=== PATIENT | male | born 1970 | race Caucasian/White ===

== ENCOUNTER 2024-10-31 18:15 | Emergency (ER) | payer OTHER ==
[~2024-10-31] VITALS: Ht 162.6 cm; Wt 75.0 kg
[2024-10-31 18:24] VITALS: O2SAT 100
[2024-10-31] MEDS ORDERED: ACETAMINOPHEN 500MG TABLET PO ONE (19:00)
[2024-10-31 19:31] LABS: BASOPHILS % 0.9 % (0.0-2.0); EOSINOPHILS % 2.0 % (0.0-5.0); HEMATOCRIT. 32.2 % (42.0-52.0); HEMOGLOBIN. 11.0 g/dL (14.0-18.0); LYMPHOCYTES % 9.4 % (20.0-50.0); MEAN PLATELET VOLUME 8.2 fl (7.4-10.4); MONOCYTES % 6.1 % (2.0-8.0); NEUTROPHILS % 81.6 % (40.0-76.0); PLATELET 355 x1000/uL (130-400); RED BLOOD CELL COUNT 3.61 mill/uL (4.7-6.1); RED CELL DISTRIBUTION WIDTH 13.7 % (11.6-14.6)
[2024-10-31 19:45] LABS: CREATININE 1.5 mg/dL (0.6-1.3)
[2024-10-31 19:46] LABS: UREA NITROGEN BLOOD 35 mg/dL (9-23)
[2024-10-31 19:47] LABS: ASPARTATE AMINOTRANSFERASE 21 IU/L (<34)
[2024-10-31 19:48] LABS: BILIRUBIN DIRECT < 0.1 mg/dL (<=3.0); BILIRUBIN TOTAL 0.5 mg/dL (0.1-1.0); PROTEIN TOTAL 7.2 g/dL (6.0-8.3); TROPONIN I HIGH SENSITIVITY 16 ng/L (3.0-53)
[2024-10-31 20:03] LABS: INR 1.0
[2024-10-31 21:14] LABS: TROPONIN I HIGH SENSITIVITY 15 ng/L (3.0-53)
[2024-10-31] MEDS: ASPIRIN 325MG TABLET PO ONE (21:20)
[2024-10-31] MEDS: NITROGLYCERIN OINT 1GM/INCH UDPKT TD ONE (21:20)
[2024-10-31] MEDS: ACETAMINOPHEN 500MG TABLET PO SCH (21:20)
[2024-10-31] MEDS: MORPHINE SULFATE 4 MG/ML INJ (FOR IV/IM USE) IV ONE (21:21)
[2024-10-31 21:53] VITALS: BP 184/84; PULSE 86; RESP 16; TEMP 36.6; O2SAT 98
== END 2024-10-31 22:00 | disposition hospice, inpatient (51) ==
LOC: ER 18:15 → CMPBEDREQ 11-01 19:22
DX: R07.89 Other chest pain (principal); I10 Essential (primary) hypertension; E11.9 Type 2 diabetes mellitus without complications; Z86.73 Personal history of transient ischemic attack (TIA), and cerebral infarction without residual deficits; Z98.890 Other specified postprocedural states
CPT/HCPCS: 80076; 80048; 83880; 85025; 85610; 85730; 84484; 36415; 71045; 70450; 93005; 99285; Z7610 ×2; J2270